=== PATIENT | female | born 2005 | race Caucasian/White ===

== ENCOUNTER 2024-03-27 19:15 | Emergency (ER) | payer BC, SELFPAY ==
--- NOTE | ~2024-03-27 | XR_ITS ---
EXAMINATION: XR CHEST CLINICAL INFORMATION: Cough. COMPARISON: None available. TECHNIQUE: Frontal view of the chest was obtained. FINDINGS: Normal appearance of the cardiomediastinal structures. Secondary to underpenetrated radiographic technique, the right costophrenic sulcus is suboptimally visualized but is without definitive evidence of associated pleural effusion or contour abnormality. Normal pattern of pulmonary vasculature. No focal pulmonary consolidation. No central peribronchial wall thickening identified. The examination is underpenetrated as manifested part by inability to visualize thoracic vertebral body contours posterior to the cardiac silhouette. XR/XR chest 1V IMPRESSION: No cardiopulmonary abnormalities. Lungs clear. Electronically signed by: Moses Servin MD 03/28/2024 12:05 AM [facility]
[2024-03-27 19:46] VITALS: BP 134/88; PULSE 119; RESP 20; TEMP 37.7; O2SAT 96; BMI 33.5
--- NOTE | 2024-03-27 19:49 | ED_ITS ---
HPI - General Adult General Chief complaint: General Medical Stated complaint: Fever & headache Time Seen by Provider: 03/27/24 21:55 History of Present Illness HPI narrative: Patient is a 18-year-old female from [facility] presents today with having coughing congestion upper respiratory symptoms. No pain on urination. Patient is currently having her menstruation. Also having some neck pain mild headache. Patient claims the symptom has been ongoing for about 3 days. No diaphoresis. Generalized malaise. Positive fever at home. Patient claims was up to 107. Related Data Previous Rx's ?Medication ?Instructions ?Recorded cephalexin 500 mg capsule 500 mg PO Q8H 7 days #21 caps 03/28/24 Allergies Allergy/AdvReac Type Severity Reaction Status Date / Time mk Allergy Hives Verified 03/27/24 19:50 Penicillins [PCN] Allergy Hives Verified 03/27/24 19:50 Review of Systems 2 Review of Systems: Positive coughing congestion upper respiratory symptoms Positive neck pain No photophobia Positive mild headache Yes all other systems are reviewed and are negative [facility] Past Medical History Attestation statement: The following information was validated with the patient. Social History Social History Smoked in Last 30 Days: No Use of substances other than those prescribed or required for medical reasons: No Advance Directives: No Advance Directives Information Provided: No Do you have a plan to hurt others: No Plan Physical Exam ED Vital Signs: Vital Signs - 24 hr 03/27/24 19:46 03/27/24 20:31 03/27/24 22:00 Temperature 99.9 F 100.0 F 99.3 F Pulse Rate 119 H 118 H 113 H Respiratory Rate 20 20 18 Blood Pressure 134/88 136/68 103/59 L Pulse Oximetry 96 95 99 Oxygen Delivery Method Room Air Room Air Room Air 03/27/24 23:33 03/28/24 00:36 Temperature 100.1 F 101.7 F H Pulse Rate 114 H 120 H Respiratory Rate 20 18 Blood Pressure 120/66 121/59 L Pulse Oximetry 97 99 Oxygen Delivery Method Room Air Room Air BMI result Body Mass Index 33.5 Appearance: Alert. Oriented X3. No acute distress. Eyes: Pupils equal, round and reactive to light. ENT: Pharynx normal. Neck: Normal inspection. Neck supple. No lymph nodes noted. No crepitus CVS: Normal heart rate and rhythm. Pulses normal. Normal S1 and S2 Respiratory: No respiratory distress. Breath sounds normal. No Wheezing. No rales Abdomen: Soft and nontender. No rigidity. No distention. good BS x4 Skin: Skin warm and dry. Normal skin color. Normal skin turgor. Extremities: No lower extremity edema. Neurovascular intact to all extremities. No Lacerations. No Rash Neuro: Oriented X 3. No motor deficit. No sensory deficit. Moving all extermities. No slurred speech Course Course Course Narrative: This is a Rapid Medical Examination (RME) performed by Lolis Amaral PA-C in triage. Full HPI, ROS, assessment and treatment plan per primary provider in the Main ED. 18 yo female here w/ fever x5 days. reports fever (TMAX 107F) - is concerned she has meningitis. vaccinations UTD. reports neck pain which began today. has been evaluated at both urgent care and health services at [facility]. currently being worked up for lyme and mono - labs pending. Tylenol prior to arrival in ED. + pain w/ flexing chin to chest Plan: labs, viral and strep swabs, mono, will need further eval in back Patient meets sepsis criteria. Will add on lactic and blood cultures. Medications Administered Discontinued Medications Generic Name Dose Route Start Last Admin Trade Name Freq PRN Reason Stop Dose Admin Sodium Chloride 1,000 mls @ 999 mls/hr 03/27/24 22:30 03/28/24 00:20 Ns IV 03/27/24 23:30 Infused .Q1H1M HORACIO Infusion Sodium Chloride 1,000 mls @ 999 mls/hr 03/27/24 22:30 03/28/24 00:20 Ns IV 03/27/24 23:30 Infused .Q1H1M HORACIO Infusion Ketorolac Tromethamine 15 mg 03/28/24 00:36 03/28/24 00:58 Ketorolac Tromethamine 15 Mg/Ml Vial IVPUSH 03/28/24 00:37 15 mg ONCE ONE Administration Medical Decision Making Medical Decision Making [facility] Narrative: Positive cough upper respiratory symptoms generalized malaise fever. At 1st we did a COVID has they are all negative. White count is 10. Patient's electrolytes are normal. Platelet count is normal. LFTs are normal. Less likely tick-borne illness. Patient is flu COVID RSV were all negative. Strep was negative. A chest x-ray was ordered. The chest x-ray is by my interpretation was grossly negative for pneumonia pneumothorax. No rib fracture. Can not explain patient's headache along with fever. An LP was offered. It was done to rule out the possibility of meningitis. Explained to patient risk of meningitis. Patient at 1st was agreeable to the LP but then changed her mind. She understood that there is risk of infection. Infection can lead to her . The to severe disability. Patient states understanding and is leaving against medical advice. Differential Diagnosis Differential Diagnoses: The differential diagnosis associated with the presentation includes Urinary tract infection, pneumonia, meningitis, viral illness Admission/Observation Consideration of admission/observation: Escalation of care including admission/observation considered Patient does not want to stay is leaving against medical advice Lab Data MDM Lab Attestation statement: I reviewed the patient's lab results. 03/27/24 20:09 03/27/24 20:09 Labs: Lab Results 03/27/24 03/28/24 Range/Units 20:09 00:59 WBC 9.6 (4.8-10.8) X10*3/uL RBC 4.30 (4.20-5.50) X10*6/uL Hgb 10.9 L (12.0-16.0) g/dl Hct 34.0 L (37.0-47.0) % MCV 79.1 L (80.0-98.0) fL MCH 25.3 L (27.0-33.0) pg MCHC 32.1 (31.0-35.0) g/dl RDW 16.1 H (11.0-16.0) % Plt Count 270 (160-400) X10*3/uL MPV 8.6 L (9.4-12.3) fL Immature Gran % (Auto) 0.6 H (0.0-0.4) % Neut % (Auto) 68.4 (45-73) % Lymph % (Auto) 20.1 (20-40) % [place] % (Auto) 8.1 (2-11) % Eos % (Auto) 2.5 (0-4) % Baso % (Auto) 0.3 (0-2) % Lymph # (Auto) 1.9 (1.2-4.9) X10*3/uL [place] # (Auto) 0.8 (0.1-1.2) X10*3/uL Eos # (Auto) 0.2 (0.0-0.4) X10*3/uL Baso # (Auto) 0.0 (0.0-0.2) X10*3/uL Abs Immat Gran (auto) 0.06 H (0.00-0.03) X10*3/uL Absolute Neuts (auto) 6.5 (2.0-8.3) x10*3/uL Absolute Nucleated RBC 0.000 (0.0-0.012) X10*3/uL Nucleated RBC % (auto) 0.0 (0.0-0.2) /100WBC Sodium 140 (135-145) mmol/L Potassium 4.0 (3.3-5.1) mmol/L Chloride 104 (96-108) mmol/L Carbon Dioxide 25 (22-29) mmol/L Anion Gap 15 (12-20) BUN 6 L (9-16) mg/dL Creatinine 0.65 (0.5-1.4) mg/dL Estim Creat Clear Calc 172.1 Estimated GFR > 60 Random Glucose 98 (60-115) mg/dL Lactic Acid 1.4 (0.5-2.0) mmol/L Calcium 9.4 (8.4-10.2) mg/dL Magnesium 1.9 (1.6-2.6) mg/dL Total Bilirubin 0.2 (0.0-1.0) mg/dL AST 24 (5-31) U/L ALT 20 (0-31) U/L Alkaline Phosphatase 74 (39-117) U/L Total Protein 7.3 (6.5-8.0) g/dL Albumin 3.9 (3.5-5.0) g/dL Urine Color Yellow Urine Appearance Turbid Urine pH 6.0 (5.0-9.0) Ur Specific [place] <= 1.005 (1.005-1.025) Urine Protein Negative (Neg-Trace) mg/dL Urine Glucose (UA) Negative (Negative) mg/dL Urine Ketones Negative (Negative) mg/dL Urine Blood Large (3+) H (Negative) Urine Nitrite Negative (Negative) Ur Leukocyte Esterase Large (3+) H (Negative) Monoscreen Negative (Negative) Influenza Type A (PCR) NEGATIVE (Negative) Influenza Type B (PCR) NEGATIVE (Negative) RSV RNA Qual (PCR) NEGATIVE (Negative) SARS-CoV-2 RNA (RT-PCR) NEGATIVE (Negative) S. pyogenes GrpA LUDY Negative (Negative) Independent Interpretation I performed an independent interpretation of an: Plain X-Ray (Chest) Radiology Impression Discussion of test interpretation with radiology: I have reviewed the radiologist's reading. Discharge Plan Discharge Clinical Impression: Acute upper respiratory infection, Meningitis, Urinary tract infection Patient Disposition: Left Against Medical Advice Instructions: Urinary Tract Infection in Women (DC), Upper Respiratory Infection (ED), Viral Syndrome (ED) Additional Instructions: Risk of meningitis exists. Please closely follow-up. If you change your mind about the lumbar puncture please come back immediately. If you want to be admitted to the hospital please just come back. Risk of significant loss and lifestyle risk of exists. Prescriptions: New cephalexin 500 mg capsule 500 mg PO Q8H 7 Days Qty: 21 0RF Referrals: Physician,None [Primary Care Provider] - (Please follow-up with [facility] soon as possible) Stand Alone Forms: Against Medical Advice Print Language: Irish
--- NOTE | 2024-03-27 19:52 | ECG_ITS ---
Test Reason : TACHYCARDIA Blood Pressure : / mmHG Vent. Rate : 117 BPM Atrial Rate : 117 BPM P-R Int : 122 ms QRS Dur : 078 ms QT Int : 290 ms P-R-T Axes : 061 070 -14 degrees QTc Int : 404 ms Sinus tachycardia T wave abnormality, consider inferior ischemia Abnormal ECG No previous ECGs available Referred By: Bettina Amaral Electronically Signed By:GRUPO CLEVELAND MD
[2024-03-27 20:18] LABS: MANUAL DIFF FLAG NO
[2024-03-27 20:22] LABS: Basophils Percent Auto 0.3 % (0-2); Eosinophils Absolute Auto 0.2 X10*3/uL (0.0-0.4); Eosinophils Percent Auto 2.5 % (0-4); Hemoglobin 10.9 g/dl (12.0-16.0); IDNOW Serial# 58CA691E; Imm Gran Abs Auto 0.06 X10*3/uL (0.00-0.03); Imm Gran Pct Auto 0.6 % (0.0-0.4); Lymphocytes Absolute Auto 1.9 X10*3/uL (1.2-4.9); Lymphocytes Percent Auto 20.1 % (20-40); Mean Corpuscular HGB Conc 32.1 g/dl (31.0-35.0); Mean Corpuscular Hemoglobin 25.3 pg (27.0-33.0); Mean Corpuscular Volume 79.1 fL (80.0-98.0); Mean Platelet Volume 8.6 fL (9.4-12.3); Monocytes Absolute Auto 0.8 X10*3/uL (0.1-1.2); Monocytes Percent Auto 8.1 % (2-11); Neutrophils Absolute Auto 6.5 x10*3/uL (2.0-8.3); Neutrophils Percent Auto 68.4 % (45-73); Platelet Count 270 X10*3/uL (160-400); Red Cell Distribution Width 16.1 % (11.0-16.0); Strep A Nucleic Acid Negative (Negative); White Blood Count 9.6 X10*3/uL (4.8-10.8)
[2024-03-27 20:31] VITALS: BP 136/68; PULSE 118; RESP 20; TEMP 37.8; O2SAT 95
[2024-03-27 20:32] LABS: Monotest Negative (Negative)
[2024-03-27 20:34] LABS: Alanine Aminotransferase 20 U/L (0-31); Albumin Level 3.9 g/dL (3.5-5.0); Alkaline Phosphatase 74 U/L (39-117); Anion Gap 15 (12-20); Aspartate Amino Transferase 24 U/L (5-31); Bilirubin Total 0.2 mg/dL (0.0-1.0); Blood Urea Nitrogen 6 mg/dL (9-16); Calcium 9.4 mg/dL (8.4-10.2); Carbon Dioxide 25 mmol/L (22-29); Chloride 104 mmol/L (96-108); Creatinine Clr Calc Pharmacy 172.1; Estimated Glomerular Filt Rate > 60; Glucose Random 98 mg/dL (60-115); Lactic Acid 1.4 mmol/L (0.5-2.0); Magnesium 1.9 mg/dL (1.6-2.6); Sodium 140 mmol/L (135-145); Total Protein 7.3 g/dL (6.5-8.0)
--- NOTE | 2024-03-27 20:34 | MHC.EDTECH ---
Patient brought from waiting room, vitals taken. MS elevated, patient placed on gambling monitor.
[2024-03-27 20:58] LABS: Influenza A PCR NEGATIVE (Negative); Influenza B PCR NEGATIVE (Negative); Resp Syncy Virus RNA Qual PCR NEGATIVE (Negative); SARS COV2 PCR INHOUSE NEGATIVE (Negative)
[2024-03-27 22:00] VITALS: BP 103/59; PULSE 113; RESP 18; TEMP 37.4; O2SAT 99
[2024-03-27] MEDS: 0.9 % Sodium Chloride 1,000 ML 999 ML IV ×2 (22:46)
[2024-03-27 23:33] VITALS: BP 120/66; PULSE 114; RESP 20; TEMP 37.8; O2SAT 97
--- NOTE | 2024-03-27 23:34 | MHC.EDTECH ---
This tech took over care of patient at 2300,rounded and introduced self to pt, vitals taken,HR is elevated 114,temp is 100.1,RN aware,call burdick in reach
[2024-03-28 00:36] VITALS: BP 121/59; PULSE 120; RESP 18; TEMP 38.7; O2SAT 99
[2024-03-28] MEDS: Ketorolac Tromethamine 15 MG/ML VIAL IVPUSH (00:58)
--- NOTE | 2024-03-28 01:12 | PC.NURSE ---
attempt to do spinal tap with Batista as pt concerned for meningitis. set up completed and pt began crying refusing procedure. pt educated on risks by MD and pt continues to refuse stating i don't care it is my body and i don't consent. ua sample sent to lab. pt medicated per jul. awaiting results plan for d/c per MD as pt states she wants to leave at this time.
[2024-03-28 01:14] LABS: Appearance Urine Turbid; Color Urine Yellow; Glucose Urine UA Negative (Negative); Leukocyte Esterase Urine Large (3+) (Negative); Nitrite Urine Negative (Negative); Specific Gravity - Urine <= 1.005 (1.005-1.025); UMIC TRIGGER UACC YES; Urine Blood Large (3+) (Negative); Urine Ketones Negative (Negative); Urine Protein Negative (Neg-Trace)
[2024-03-28] MEDS: cefTRIAXone sodium 2 GM VIAL IVPUSH (01:29)
[2024-03-28 01:30] LABS: Bacteria Urine 4+ (None Seen); Hyaline Casts Urine 0-2 /LPF (0-2); UACC Culture Trigger YES
[2024-03-28 02:23] VITALS: BP 121/61; PULSE 110; RESP 18; TEMP 37.6; O2SAT 98
== END 2024-03-28 01:45 | disposition left against medical advice (07) ==
PROVIDERS: Physician Assistant Medical; Emergency Provider Emergency Medicine Emergency Medical Services
DX: J06.9 Acute upper respiratory infection, unspecified (principal); G03.9 Meningitis, unspecified; N39.0 Urinary tract infection, site not specified; Z03.818 Encounter for observation for suspected exposure to other biological agents ruled out; R50.9 Fever, unspecified; R51.9 Headache, unspecified; Z53.29 Procedure and treatment not carried out because of patient's decision for other reasons
CPT/HCPCS: 0241U; 36415; 71045; 80053; 81001; 83605; 83735; 85025; 86308; 87040; 87086; 87651; 89051; 93005; 96361; 96374; 96375; 99285; J0696; J1885

== ENCOUNTER → 2024-03-27 19:52 | Outpatient (BNV) | payer BC, SELFPAY | PROVIDERS: Emergency Provider Emergency Medicine Emergency Medical Services; Visit Provider Internal Medicine Cardiovascular Disease | DX: R00.0 Tachycardia, unspecified (principal); R94.31 Abnormal electrocardiogram [ECG] [EKG] | CPT/HCPCS: 93010 ==